=== PATIENT | female | born 1960 | race Caucasian/White ===

== ENCOUNTER 2018-04-14 07:12 | Day surgery (SDC) | payer BC ==
[2018-04-13 13:39] LABS: CHLORIDE,CL 106 mmol/L (98-107); SODIUM,NA 143 mmol/L (136-145)
[~2018-04-14 07:12] MED LIST: Sodium Chloride 0.9% 10 ML Syringe FLUSH PRN; Sodium Chloride 0.9% 2.5 ML Syringe FLUSH PRN; ceFAZolin 2 GM in Premix Bag 1 BAG IV ONE
[2018-04-14] MEDS ORDERED: fentaNYL 250 MCG/5 ML SDV ONE (07:32)
[2018-04-14] MEDS ORDERED: Rocuronium 10 MG/ML 10 ML Syringe ONE (07:32)
[2018-04-14] MEDS ORDERED: Midazolam 1 MG/ML 2 ML SDV ONE (07:32)
[2018-04-14] MEDS ORDERED: Lidocaine 2% 5 ML SDV ONE (07:32)
[2018-04-14] MEDS ORDERED: Propofol 200 MG/20 ML SDV ONE (07:32)
[2018-04-14] MEDS ORDERED: Ondansetron 4 MG/2 ML SDV ONE (07:32)
[2018-04-14] MEDS ORDERED: Scopolamine 1.5 MG Transdermal Patch TRDERM PRN ×2 (07:37→07:51)
[2018-04-14] MEDS ORDERED: ceFAZolin/Dextrose,Iso-Osmotic 2 GM/50 ML Duplex Bag IV ONE (07:38)
[2018-04-14] MEDS ORDERED: Acetaminophen 1,000 MG in Premix Bag 1 BAG IV SCH (07:45)
--- NOTE | 2018-04-14 07:51 | PCM.PREANE ---
Preanesthetic Assessment - Anesthesia/Transfusion/Family Hx Anesthesia History: Prior Anesthesia Without Reaction Family History of Anesthesia Reaction: No Transfusion History: No Prior Transfusion(s) Intubation History: Unknown - Review of Systems General: No Symptoms Pulmonary: No Symptoms Cardiovascular: No Symptoms Gastrointestinal: No Symptoms Neurological: No Symptoms Other: Reports: None - Physical Assessment O2 Sat by Pulse Oximetry: 95 Respiratory Rate: 16 Vital Signs: Last Vital Signs Temp 36.2 C 04/14/18 07:40 Pulse 67 04/14/18 07:40 Resp 16 04/14/18 07:40 BP 166/75 H 04/14/18 07:40 Pulse Ox 95 04/14/18 07:40 Height: 1.68 m Weight: 92.079 kg ASA Class: 2 Mental Status: Alert & Oriented x3 Airway Class: Mallampati = 2 Dentition: Reports: Normal Dentition, Broken Tooth/Teeth (front upper x2) Thyro-Mental Finger Breadths: 2 Mouth Opening Finger Breadths: 2 ROM/Head Extension: Full Lungs: Clear to Auscultation, Normal Respiratory Effort Cardiovascular: Regular Rate, Regular Rhythm - Lab Values: Laboratory Last Values WBC 5.35 K/uL (4.0-11.0) 04/13/18 12:30 RBC 4.53 M/uL (4.30-5.90) 04/13/18 12:30 Hgb 14.1 g/dL (12.0-16.0) 04/13/18 12:30 Hct 41.8 % (36.0-46.0) 04/13/18 12:30 MCV 92.3 fL (80.0-98.0) 04/13/18 12:30 MCH 31.1 pg (27.0-32.0) 04/13/18 12:30 MCHC 33.7 g/dL (31.0-37.0) 04/13/18 12:30 RDW Std Deviation 43.4 fl (28.0-62.0) 04/13/18 12:30 RDW Coeff of Justine 13 % (11.0-15.0) 04/13/18 12:30 Plt Count 172 K/uL (150-400) 04/13/18 12:30 MPV 11.80 fL (7.40-12.00) 04/13/18 12:30 Nucleated RBC % 0.0 /100WBC 04/13/18 12:30 Nucleated RBCs # 0 K/uL 04/13/18 12:30 Sodium 143 mmol/L (136-145) 04/13/18 12:30 Potassium 3.7 mmol/L (3.5-5.1) 04/13/18 12:30 Chloride 106 mmol/L (98-107) 04/13/18 12:30 Carbon Dioxide 25.8 mmol/L (21.0-32.0) 04/13/18 12:30 BUN 21 mg/dL (7.0-18.0) H 04/13/18 12:30 Creatinine 0.7 mg/dL (0.6-1.0) 04/13/18 12:30 Est Cr Clr Drug Dosing 81.01 mL/min 04/13/18 12:30 Estimated GFR (MDRD) > 60.0 ml/min 04/13/18 12:30 Glucose 108 mg/dL (74-106) H 04/13/18 12:30 Calcium 9.8 mg/dL (8.5-10.1) 04/13/18 12:30 HCG, Qual NEGATIVE (NEG) 04/13/18 12:30 Blood Type A POSITIVE 04/13/18 12:30 Antibody Screen NEGATIVE 04/13/18 12:30 - Allergies Allergies/Adverse Reactions: Allergies Allergy/AdvReac Type Severity Reaction Status Date / Time adhesive tape Allergy Rash Verified 04/11/18 11:06 latex Allergy Rash Verified 04/11/18 11:06 PPD black rubber mix Allergy Blisters Verified 04/11/18 11:06 - Blood Blood Available: No - Anesthesia Plan Pre-Op Medication Ordered: None - Acknowledgements Anesthesia Type Planned: General Anesthesia Pt an Appropriate Candidate for the Planned Anesthesia: Yes Alternatives and Risks of Anesthesia Discussed w Pt/Guardian: Yes Pt/Guardian Understands and Agrees with Anesthesia Plan: Yes PreAnesthesia Questionnaire HEENT History: Reports: Other (See Below) Other HEENT History: wears glasses Cardiovascular History: Reports: Hypertension Respiratory History: Reports: None Gastrointestinal History: Reports: Colon Polyp Genitourinary History: Reports: None CAR DUMPER History: Reports: Other (See Below) (cystocele) Musculoskeletal History: Reports: None Neurological History: Reports: Other (See Below) Other Neuro History: hx of motion sickness Psychiatric History: Reports: None Endocrine/Metabolic History: Reports: Obesity/BMI 30+ Hematologic History: Reports: None Immunologic History: Reports: None Oncologic (Cancer) History: Reports: None Dermatologic History: Reports: Other (See Below) Other Dermatologic History: her skin breaks out without sun exposure - Past Surgical History Female Surgical History: Reports: Tubal Ligation - SUBSTANCE USE Smoking Status *Q: Never Smoker Second Hand Smoke Exposure: Yes Recreational Drug Use History: No - HOME MEDS Home Medications: Home Meds Losartan/Hydrochlorothiazide [Losartan-HCTZ 50-12.5 MG] 1 tab PO QAM 01/06/18 [ History] Mv-Mn/Folic Acid/Vit K/Olov842 [Alive Once Daily Women 50 Plus] 1 tab PO DAILY 01/06/18 [History] - CURRENT (IN HOUSE) MEDS Current Meds: Current Medications Lactated Ringer's (Ringers, Lactated) 1,000 mls @ 125 mls/hr IV ASDIRECTED MANDEEP Acetaminophen 1,000 mg/ Premix 100 mls @ 400 mls/hr IV .ONETIME MANDEEP Scopolamine (Transderm-Scop) 1.5 mg TRDERM .ONCE PRN PRN Reason: Post Op Nausea Sodium Chloride (Saline Flush) 10 ml FLUSH ASDIRECTED PRN PRN Reason: Keep Vein Open Sodium Chloride (Saline Flush) 2.5 ml FLUSH ASDIRECTED PRN PRN Reason: Keep Vein Open Discontinued Medications Cefazolin Sodium/Dextrose (Ancef) Confirm Administered Dose 2 gm IV .STK-MED ONE Stop: 04/14/18 07:39 Fentanyl (Sublimaze) Confirm Administered Dose 250 mcg .ROUTE .STK-MED ONE Stop: 04/14/18 07:33 Cefazolin Sodium/Dextrose 2 gm (/ Premix) 50 mls @ 100 mls/hr IV ONETIME ONE Stop: 04/13/18 11:43 Lidocaine (Xylocaine-Mpf 2%) Confirm Administered Dose 5 ml .ROUTE .STK-MED ONE Stop: 04/14/18 07:33 Midazolam HCl (Versed 1 Mg/Ml) Confirm Administered Dose 2 mg .ROUTE .STK-MED ONE Stop: 04/14/18 07:33 Ondansetron HCl (Zofran) Confirm Administered Dose 4 mg .ROUTE .STK-MED ONE Stop: 04/14/18 07:33 Propofol (Diprivan 20 Ml) Confirm Administered Dose 200 mg .ROUTE .STK-MED ONE Stop: 04/14/18 07:33 Rocuronium [place] (Zemuron) Confirm Administered Dose 100 mg .ROUTE .STK-MED ONE Stop: 04/14/18 07:33
[2018-04-14] MEDS: Lactated Ringers 1,000 ML IV SCH ×2 (07:58→12:46)
[2018-04-14] MEDS ORDERED: Dexamethasone 4 MG/ML 5 ML MDV ONE (09:31)
[2018-04-14] MEDS ORDERED: diphenhydrAMINE 50 MG/ML SDV ONE (09:31)
[2018-04-14] MEDS ORDERED: Fluorescein 5 ML Vial ONE (09:36)
[2018-04-14] MEDS ORDERED: HYDROmorphone 2 MG/ML Syringe ONE (09:37)
[2018-04-14] MEDS ORDERED: ePHEDrine 50 MG/ML SDV ONE (09:58)
[2018-04-14] MEDS ORDERED: Glycopyrrolate 0.2 MG/ML SDV ONE (09:58)
[2018-04-14] MEDS ORDERED: Albuterol 0.083% 2.5 MG/3 ML Neb Soln NEB PRN (10:21)
[2018-04-14] MEDS ORDERED: Naloxone 0.4 MG/ML Syringe IVPUSH PRN (10:21)
[2018-04-14] MEDS ORDERED: EPINEPHrine 1 MG/ML SDV IVPUSH ONE (10:21)
[2018-04-14] MEDS ORDERED: Atropine 1 MG/ML SDV IVPUSH PRN ×2 (10:21)
[2018-04-14] MEDS ORDERED: 50% Dextrose in Water 50 ML Syringe IVPUSH PRN (10:21)
[2018-04-14] MEDS ORDERED: fentaNYL 100 MCG/2 ML SDV IVPUSH PRN (10:21)
[2018-04-14] MEDS ORDERED: Ketorolac 30 MG/ML SDV IVPUSH ONE (10:50)
[2018-04-14] MEDS ORDERED: Morphine 4 MG/ML Syringe IVPUSH PRN (10:50)
[2018-04-14] MEDS ORDERED: Ketorolac 30 MG/ML SDV IVPUSH PRN (10:50)
[2018-04-14] MEDS ORDERED: Acetaminophen/oxyCODONE 325-5 MG Tab PO PRN (10:50)
[2018-04-14] MEDS ORDERED: Promethazine 25 MG/ML SDV IM PRN (10:50)
--- NOTE | 2018-04-14 10:55 | PCM.OPNOTE ---
- General Post-Op/Procedure Note Date of Surgery/Procedure: 04/14/18 Operative Procedure(s): TVH,BSO,Solyex TVT,Ant repair with therese plication and cystoscopy. Post-Op Diagnosis: Same Anesthesia Technique: General ET Tube Primary Surgeon: Greg Spence EBL in mLs: 250 Complications: None Condition: Good
--- NOTE | 2018-04-14 13:11 | OR ---
SURGEON: Greg Spence MD DATE OF PROCEDURE: 04/14/2018 PREOPERATIVE DIAGNOSES: Pelvic relaxation, anterior vaginal wall prolapse, and uterine prolapse. POSTOPERATIVE DIAGNOSES: Pelvic relaxation, anterior vaginal wall prolapse, and uterine prolapse. OPERATIONS PERFORMED: Total vaginal hysterectomy, vaginal bilateral salpingo-oophorectomy, Solyx TVT, anterior repair with Bonita plication, cystoscopy, and Ceballos culdoplasty. EXPLOSIVE MAN: OR tech. ANESTHESIA: General endotracheal intubation. ANESTHESIOLOGIST: Dr. Penelope Humphrey. ESTIMATED BLOOD LOSS: 200 to 300 mL. COMPLICATIONS: None. FINDINGS: Pelvic female prolapse. INDICATION: [place] refer to the admit note. PROCEDURE IN DETAIL: The patient was brought to the OR, properly identified. After adequate level of anesthesia, the patient was placed in lithotomy position, prepped and draped in sterile fashion as usual, and straight catheter was used to empty the bladder, and then the cervix was grabbed with a single-tooth tenaculum using electrocautery. Circular incision in the vaginal mucosa around the cervix was done. The posterior cul-de-sac was entered posteriorly with Hopper scissor, and a short weighted speculum replaced with an extending long weighted speculum. The uterosacral ligament identified from both sides and transected and suture ligated in Liang fashion to help for further identification. The same things are done with cardinal ligament, and then the cervical vesicle space was entered anteriorly retracting the bladder completely from the operative field, and the anterior cul-de-sac was entered anteriorly. The broad ligament was clamped with curved Zeppelin, transected, suture ligated with 2-0 Vicryl pop-off. The uterine vessel was suture ligated at this step, and then the uterus was delivered posteriorly, and the superior pedicle from both sides was taken with 90-degree zeppelin. The tubes and ovary included with the specimen, thus achieving hysterectomy with bilateral salpingo-oophorectomy. Once we did that, then I used 2-0 Vicryl to do external and internal Ceballos culdoplasty. After performing Ceballos culdoplasty, then the vaginal cuff was closed with 2-0 Vicryl interrupted [id number] suture. Next, attention paid to the anterior vaginal wall and the anterior vaginal wall infiltrated with copious amount of normal saline and was opened from the vaginal vault to the urethra and the midline, and dissected laterally dissecting the bladder away from it and once that was done, then the Solyx TVT was placed to elevate the urethrovesical angle without any problem, and Bonita plication was performed using 2-0 Vicryl interrupted suture. The excess vaginal mucosa was trimmed anteriorly and the vaginal mucosa was closed with 2-0 Vicryl continuous interlocking for hemostasis. While we are doing that, we asked the anesthesia personnel to give the patient fluorescein and while we are waiting for fluorescein, I assessed the posterior vaginal wall and I deemed that there is no need for a posterior repair since most of the problem with the patient is anterior vaginal wall and uterine prolapse. Then, cystoscopy was performed, the bladder was intact. Both ureteric orifices were seen with dye coming from both of them. Thus, the patency of both ureters verified and satisfied with this procedure. The cystoscope was removed and Holloway catheter was placed in the place, and vaginal pack was placed for hemostasis. Instrument and sponge counts were correct. The patient tolerated the procedure well, went to recovery room in stable general condition. ESTEFANY / DAVID /[id number]
[2018-04-14] MEDS: Ondansetron 4 MG/2 ML SDV IVPUSH PRN ×2 (14:22→19:42)
[2018-04-14] MEDS: Acetaminophen/oxyCODONE 325-5 MG Tab PO PRN (19:47)
[2018-04-15 06:11] LABS: CHLORIDE,CL 106 mmol/L (98-107); SODIUM,NA 141 mmol/L (136-145)
--- NOTE | 2018-04-15 07:25 | PCM48HPAN ---
Post Anesthesia Note - EVALUATION WITHIN 48HRS OF ANESTHETIC Vital Signs in Normal Range: Yes Patient Participated in Evaluation: Yes Respiratory Function Stable: Yes Airway Patent: Yes Cardiovascular Function Stable: Yes Hydration Status Stable: Yes Pain Control Satisfactory: Yes Nausea and Vomiting Control Satisfactory: Yes Mental Status Recovered: Yes Resp Rate: 18
--- NOTE | 2018-04-15 13:15 | PCM.SURGPN ---
- General Info Date of Service: 04/15/18 POD#: 1 Functional Status: Reports: Pain Controlled - Review of Systems General: Reports: No Symptoms HEENT: Reports: No Symptoms Pulmonary: Reports: No Symptoms Cardiovascular: Reports: No Symptoms Gastrointestinal: Reports: No Symptoms Genitourinary: Reports: No Symptoms Musculoskeletal: Reports: No Symptoms Skin: Reports: No Symptoms Neurological: Reports: No Symptoms Psychiatric: Reports: No Symptoms - Patient Data Vitals - Most Recent: Last Vital Signs Temp 36.7 C 04/15/18 08:00 Pulse 68 04/15/18 08:00 Resp 16 04/15/18 08:00 BP 118/55 L 04/15/18 08:00 Pulse Ox 96 04/15/18 08:00 Weight - Most Recent: 92.079 kg I&O - Last 24 Hours: Intake & Output 04/14/18 04/15/18 04/15/18 22:59 06:59 14:59 Intake Total 1030 700 Output Total 650 1825 Balance 380 -1125 Lab Results Last 24 Hrs: Laboratory Results - last 24 hr 04/15/18 04/15/18 Range/Units 05:00 05:45 WBC 12.07 H (4.0-11.0) K/uL RBC 3.44 L (4.30-5.90) M/uL Hgb 10.7 L (12.0-16.0) g/dL Hct 31.6 L (36.0-46.0) % MCV 91.9 (80.0-98.0) fL MCH 31.1 (27.0-32.0) pg MCHC 33.9 (31.0-37.0) g/dL RDW Std Deviation 43.2 (28.0-62.0) fl RDW Coeff of Justine 13 (11.0-15.0) % Plt Count 161 (150-400) K/uL MPV 11.80 (7.40-12.00) fL Neut % (Auto) 82.8 H (48.0-80.0) % Lymph % (Auto) 9.9 L (16.0-40.0) % [place] % (Auto) 7.1 (0.0-15.0) % Eos % (Auto) 0.1 (0.0-7.0) % Baso % (Auto) 0.1 (0.0-1.5) % Neut # (Auto) 10.0 H (1.4-5.7) K/uL Lymph # (Auto) 1.2 (0.6-2.4) K/uL [place] # (Auto) 0.9 H (0.0-0.8) K/uL Eos # (Auto) 0.0 (0.0-0.7) K/uL Baso # (Auto) 0.0 (0.0-0.1) K/uL Nucleated RBC % 0.0 /100WBC Nucleated RBCs # 0 K/uL Sodium 141 (136-145) mmol/L Potassium 3.9 (3.5-5.1) mmol/L Chloride 106 (98-107) mmol/L Carbon Dioxide 27.3 (21.0-32.0) mmol/L BUN 13 (7.0-18.0) mg/dL Creatinine 0.7 (0.6-1.0) mg/dL Est Cr Clr Drug Dosing 81.01 mL/min Estimated GFR (MDRD) > 60.0 ml/min Glucose 132 H (74-106) mg/dL Calcium 9.1 (8.5-10.1) mg/dL Med Orders - Current: Current Medications Albuterol (Proventil Neb Soln) 2.5 mg NEB ONETIME PRN PRN Reason: Wheezing Atropine Sulfate (Atropine 1 Mg/Ml) 1 mg IVPUSH ASDIRECTED PRN PRN Reason: ACLS Guidelines Atropine Sulfate (Atropine 1 Mg/Ml) 0.5 mg IVPUSH ASDIRECTED PRN PRN Reason: Hypo-Perfusion Dextrose/Water (Dextrose 50% In Water) 50 ml IVPUSH ASDIRECTED PRN PRN Reason: Hypoglycemia Fentanyl (Sublimaze) 50 - 100 mcg IVPUSH Q5M PRN PRN Reason: Pain Lactated Ringer's (Ringers, Lactated) 1,000 mls @ 125 mls/hr IV ASDIRECTED MANDEEP Last Admin: 04/14/18 12:46 Dose: 125 mls/hr Acetaminophen 1,000 mg/ Premix 100 mls @ 400 mls/hr IV .ONETIME [facility] Last Admin: 04/14/18 08:01 Dose: 400 mls/hr Ketorolac Tromethamine (Toradol) 30 mg IVPUSH Q6H PRN PRN Reason: Pain (severe 7-10) Stop: 04/19/18 10:50 Last Admin: 04/14/18 14:21 Dose: 30 mg Morphine Sulfate (Morphine) 4 mg IVPUSH Q2H PRN PRN Reason: Pain (severe 7-10) Last Admin: 04/14/18 16:01 Dose: 4 mg Naloxone HCl (Narcan) 0.1 mg IVPUSH ASDIRECTED PRN PRN Reason: Respiratory Depression Ondansetron HCl (Zofran) 4 mg IVPUSH Q6H PRN PRN Reason: Nausea/Vomiting Last Admin: 04/14/18 19:42 Dose: 4 mg Oxycodone/Acetaminophen (Percocet 325-5 Mg) 1 tab PO Q4H PRN PRN Reason: Pain (moderate 4-6) Last Admin: 04/14/18 19:47 Dose: 1 tab Oxycodone/Acetaminophen (Percocet 325-5 Mg) 2 tab PO Q4H PRN PRN Reason: Pain (moderate 4-6) Promethazine HCl (Phenergan) 25 mg IM Q6H PRN PRN Reason: Nausea/Vomiting Scopolamine (Transderm-Scop) 1.5 mg TRDERM Q72H PRN PRN Reason: Nausea Last Admin: 04/14/18 08:00 Dose: 1.5 mg Sodium Chloride (Saline Flush) 10 ml FLUSH ASDIRECTED PRN PRN Reason: Keep Vein Open Sodium Chloride (Saline Flush) 2.5 ml FLUSH ASDIRECTED PRN PRN Reason: Keep Vein Open Discontinued Medications Cefazolin Sodium/Dextrose (Ancef) Confirm Administered Dose 2 gm IV .STK-MED ONE Stop: 04/14/18 07:39 Dexamethasone (Dexamethasone) Confirm Administered Dose 20 mg .ROUTE .STK-MED ONE Stop: 04/14/18 09:32 Diphenhydramine HCl (Benadryl) Confirm Administered Dose 50 mg .ROUTE .STK-MED ONE Stop: 04/14/18 09:32 Ephedrine Sulfate (Ephedrine Sulfate) Confirm Administered Dose 50 mg .ROUTE .STK-MED ONE Stop: 04/14/18 09:59 Epinephrine HCl (Adrenalin) 1 mg IVPUSH NOW ONE Stop: 04/14/18 10:22 Last Admin: 04/14/18 15:25 Dose: Not Given Fentanyl (Sublimaze) Confirm Administered Dose 250 mcg .ROUTE .STK-MED ONE Stop: 04/14/18 07:33 Fluorescein Sodium (Ak-Fluor) Confirm Administered Dose 5 ml .ROUTE .STK-MED ONE Stop: 04/14/18 09:37 Glycopyrrolate (Robinul) Confirm Administered Dose 0.4 mg .ROUTE .STK-MED ONE Stop: 04/14/18 09:59 Hydromorphone HCl (Dilaudid) Confirm Administered Dose 2 mg .ROUTE .STK-MED ONE Stop: 04/14/18 09:38 Cefazolin Sodium/Dextrose 2 gm (/ Premix) 50 mls @ 100 mls/hr IV ONETIME ONE Stop: 04/13/18 11:43 Last Admin: 04/14/18 15:24 Dose: Not Given Ketorolac Tromethamine (Toradol) 30 mg IVPUSH ONETIME ONE Stop: 04/14/18 10:51 Last Admin: 04/14/18 15:25 Dose: Not Given Lidocaine (Xylocaine-Mpf 2%) Confirm Administered Dose 5 ml .ROUTE .STK-MED ONE Stop: 04/14/18 07:33 Midazolam HCl (Versed 1 Mg/Ml) Confirm Administered Dose 2 mg .ROUTE .STK-MED ONE Stop: 04/14/18 07:33 Ondansetron HCl (Zofran) Confirm Administered Dose 4 mg .ROUTE .STK-MED ONE Stop: 04/14/18 07:33 Propofol (Diprivan 20 Ml) Confirm Administered Dose 200 mg .ROUTE .STK-MED ONE Stop: 04/14/18 07:33 Rocuronium [place] (Zemuron) Confirm Administered Dose 100 mg .ROUTE .STK-MED ONE Stop: 04/14/18 07:33 Scopolamine (Transderm-Scop) 1.5 mg TRDERM .ONCE PRN PRN Reason: Post Op Nausea - Exam Wound/Incisions: Healing Well General: Alert, Oriented HEENT: Pupils Equal Neck: Supple Lungs: Clear to Auscultation, Normal Respiratory Effort Cardiovascular: Regular Rate, Regular Rhythm GI/Abdominal Exam: Normal Bowel Sounds, Soft, Non-Tender, No Organomegaly, No Distention, No Abnormal Bruit, No Mass, Pelvis Stable Extremities: Normal Inspection, Normal Range of Motion, Non-Tender, No Pedal Edema, Normal Capillary Refill Skin: Warm, Dry, Intact Neurological: No New Focal Deficit Psy/Mental Status: Alert, Normal Affect, Normal Mood - Problem List Review Problem List Initiated/Reviewed/Updated: Yes - My Orders Last 24 Hours: Active Orders 24 hr Category Date Time Status Regular Diet [DIET] Diet 04/14/18 Dinner Active Medication Orders Albuterol (Proventil Neb Soln) 2.5 mg NEB ONETIME PRN PRN Reason: Wheezing Atropine Sulfate (Atropine 1 Mg/Ml) 1 mg IVPUSH ASDIRECTED PRN PRN Reason: ACLS Guidelines Atropine Sulfate (Atropine 1 Mg/Ml) 0.5 mg IVPUSH ASDIRECTED PRN PRN Reason: Hypo-Perfusion Dextrose/Water (Dextrose 50% In Water) 50 ml IVPUSH ASDIRECTED PRN PRN Reason: Hypoglycemia Fentanyl (Sublimaze) 50 - 100 mcg IVPUSH Q5M PRN PRN Reason: Pain Lactated Ringer's (Ringers, Lactated) 1,000 mls @ 125 mls/hr IV ASDIRECTED MANDEEP Last Admin: 04/14/18 12:46 Dose: 125 mls/hr Infusion: 04/14/18 12:46 Dose: 125 mls/hr Admin: 04/14/18 07:58 Dose: 125 mls/hr Acetaminophen 1,000 mg/ Premix 100 mls @ 400 mls/hr IV .ONETIME MANDEEP Last Admin: 04/14/18 08:01 Dose: 400 mls/hr Ketorolac Tromethamine (Toradol) 30 mg IVPUSH Q6H PRN PRN Reason: Pain (severe 7-10) Stop: 04/19/18 10:50 Last Admin: 04/14/18 14:21 Dose: 30 mg Morphine Sulfate (Morphine) 4 mg IVPUSH Q2H PRN PRN Reason: Pain (severe 7-10) Last Admin: 04/14/18 16:01 Dose: 4 mg Naloxone HCl (Narcan) 0.1 mg IVPUSH ASDIRECTED PRN PRN Reason: Respiratory Depression Ondansetron HCl (Zofran) 4 mg IVPUSH Q6H PRN PRN Reason: Nausea/Vomiting Last Admin: 04/14/18 19:42 Dose: 4 mg Admin: 04/14/18 14:22 Dose: 4 mg Oxycodone/Acetaminophen (Percocet 325-5 Mg) 1 tab PO Q4H PRN PRN Reason: Pain (moderate 4-6) Last Admin: 04/14/18 19:47 Dose: 1 tab Oxycodone/Acetaminophen (Percocet 325-5 Mg) 2 tab PO Q4H PRN PRN Reason: Pain (moderate 4-6) Promethazine HCl (Phenergan) 25 mg IM Q6H PRN PRN Reason: Nausea/Vomiting Scopolamine (Transderm-Scop) 1.5 mg TRDERM Q72H PRN PRN Reason: Nausea Last Admin: 04/14/18 08:00 Dose: 1.5 mg Sodium Chloride (Saline Flush) 10 ml FLUSH ASDIRECTED PRN PRN Reason: Keep Vein Open Sodium Chloride (Saline Flush) 2.5 ml FLUSH ASDIRECTED PRN PRN Reason: Keep Vein Open - Assessment Assessment (Free Text/Narrative):: Status post vaginal hysterectomy and pelvic repair postoperative day #1 the patient is afebrile stable no vaginal bleeding vaginal is pack removed and the Holloway catheter is normal the patient was able to void without any problem. She is on regular diet and her pain is under control - Plan Plan (Free Text/Narrative):: Patient will be sent home today with the prescription of [place] 5 for postoperative pain the postvasectomy instruction is given there is no restriction on her diet she is to come to the office 1 week of the discharge for late postoperative examination
[2018-04-15] MEDS: Acetaminophen/oxyCODONE 325-5 MG Tab PO PRN (13:41)
== END 2018-04-15 13:50 | disposition home or self-care (01) ==
LOC: MW.SDS 07:12 → MW.MS 11:07 → MW.SDS 04-15 13:50
PROVIDERS: ATTEND Obstetrics & Gynecology
DX: N81.4 Uterovaginal prolapse, unspecified (principal); D25.1 Intramural leiomyoma of uterus; I10 Essential (primary) hypertension; E66.9 Obesity, unspecified; Z68.33 Body mass index [BMI] 33.0-33.9, adult; Z91.040 Latex allergy status; Z79.899 Other long term (current) drug therapy
CPT/HCPCS: 36415; 57240; 57288; 58262; 80048; 84703; 85025; 85027; 86850; 86900; 86901; A9270; J0131; J0690; J1100; J1170; J1200; J1885; J2001; J2250; J2270; J2405; J2704; J3010; J3490; J7120; 00944; 88307